=== PATIENT | male | born 1945 | race Hispanic/Latino ===

== ENCOUNTER 2022-02-20 10:36 | Inpatient (IN) | payer MEDICARE ==
[~2022-02-20] VITALS: Ht 180.3 cm; Wt 95.3 kg
[2022-02-20] MEDS ORDERED: ASPIRIN 81 MG CHEW TAB PO ONE (11:30)
[2022-02-20 11:40] LABS: BASOPHILS % 0.4 % (0.0-1.0); EOSINOPHILS # (AUTO) 0.1 (0.0-0.4); EOSINOPHILS % 0.7 % (0.0-6.0); HEMATOCRIT 39.9 % (38.2-49.6); HEMOGLOBIN 12.9 g/dL (14.0-18.0); LYMPHOCYTES # (AUTO) 1.5 (1.0-3.2); MEAN CORPUSCULAR HEMOGLOBIN 32.8 pg (28-32); MEAN CORPUSCULAR HGB CONC 32.3 g/dL (31-35); MEAN CORPUSCULAR VOLUME 101.5 fL (81-99); MONOCYTES # (AUTO) 0.6 (0.2-0.8); MONOCYTES % 8.2 % (4.4-11.3); NEUTROPHILS # (AUTO) 5.2 (2.1-6.9); NEUTROPHILS % 70.4 % (38.7-80.0); PLATELET COUNT 173 x10e3/uL (140-360); RED BLOOD COUNT 3.93 x10e6/uL (4.3-5.7); RED CELL DISTRIBUTION WIDTH 12.6 % (11.7-14.4)
[2022-02-20 11:42] LABS: INR 0.97; PROTHROMBIN TIME 13.8 seconds (11.9-14.5)
[2022-02-20 11:43] LABS: PARTIAL THROMBOPLASTIN TIME 33.4 seconds (23.8-35.5)
[2022-02-20 11:49] LABS: ALBUMIN 4.1 g/dL (3.5-5.0); ALBUMIN/GLOBULIN RATIO 1.3 (0.8-2.0); CALCIUM 9.4 mg/dL (8.4-10.2); CREATININE, SERUM 0.73 mg/dL (0.72-1.25)
[2022-02-20 11:56] LABS: CREATINE KINASE MB 1.3 ng/mL (0-5.0)
[2022-02-20] MEDS ORDERED: IOPAMIDOL 370 MG/ML 100 ML INFUS..BTL INJ ONE (13:03)
[2022-02-20] MEDS ORDERED: ONDANSETRON HCL INJ 2MG/ML 2ML 2 MG/ML VIAL IV PRN (16:30)
[2022-02-20] MEDS ORDERED: SODIUM CHLORIDE 0.9% 1000ML 1,000 ML IV ONE (16:30)
[2022-02-20] MEDS ORDERED: DEXTROSE 50% SYRINGE 50 ML IV PRN (16:45)
[2022-02-20 20:00] VITALS: BP 143/65
[2022-02-20] MEDS: INSULIN LISPRO 100 UNIT/1 ML 3ML VIAL SQ SCH (20:38)
[2022-02-20 21:26] VITALS: BP 143/65
[2022-02-21] VITALS (8 sets, daily range): BP systolic 131–143; BP diastolic 60–76
[2022-02-21 00:48] LABS: CHOL/HDL RATIO 3.3 (3.9-4.7)
[2022-02-21 06:31] LABS: BASOPHILS % 0.6 % (0.0-1.0); EOSINOPHILS # (AUTO) 0.1 (0.0-0.4); EOSINOPHILS % 1.7 % (0.0-6.0); HEMATOCRIT 36.1 % (38.2-49.6); HEMOGLOBIN 11.6 g/dL (14.0-18.0); LYMPHOCYTES # (AUTO) 1.7 (1.0-3.2); LYMPHOCYTES % 22.8 % (18.0-39.1); MEAN CORPUSCULAR HEMOGLOBIN 32.6 pg (28-32); MEAN CORPUSCULAR HGB CONC 32.1 g/dL (31-35); MEAN CORPUSCULAR VOLUME 101.4 fL (81-99); MONOCYTES # (AUTO) 0.7 (0.2-0.8); MONOCYTES % 9.5 % (4.4-11.3); NEUTROPHILS # (AUTO) 4.8 (2.1-6.9); NEUTROPHILS % 65.3 % (38.7-80.0); PLATELET COUNT 156 x10e3/uL (140-360); RED BLOOD COUNT 3.56 x10e6/uL (4.3-5.7); RED CELL DISTRIBUTION WIDTH 12.4 % (11.7-14.4)
[2022-02-21 07:02] LABS: ALBUMIN 3.6 g/dL (3.5-5.0); ALBUMIN/GLOBULIN RATIO 1.3 (0.8-2.0); ANION GAP 12.1 mmol/L (8-16); CALCIUM 9.1 mg/dL (8.4-10.2); CREATININE, SERUM 0.68 mg/dL (0.72-1.25); POTASSIUM 4.1 mmol/L (3.5-5.1)
[2022-02-21] MEDS: INSULIN LISPRO 100 UNIT/1 ML 3ML VIAL SQ SCH ×4 (08:15→21:59)
[2022-02-21] MEDS: ASPIRIN 325 MG TAB EC PO SCH (08:34)
[2022-02-21] MEDS ORDERED: FEROSUL325 MG PO (20:03)
[2022-02-21] MEDS ORDERED: METFORMIN HCL500 MG PO (20:03)
[2022-02-21] MEDS ORDERED: ASPIRIN (20:03)
[2022-02-21] MEDS ORDERED: METOPROLOL TART50 MG PO (20:03)
[2022-02-21] MEDS ORDERED: SIMVASTATIN40 MG PO (20:03)
[2022-02-21] MEDS ORDERED: OSTEO BI-FLEX1 EAC3 (20:03)
[2022-02-21] MEDS ORDERED: AMLODIPINE BESYL5 MG PO (20:03)
[2022-02-21] MEDS ORDERED: MELOXICAM7.5 MG PO (20:03)
[2022-02-21] MEDS ORDERED: LOSARTAN POTASS25 MG PO (20:03)
[2022-02-22] VITALS: BP 133/59
[2022-02-22 04:00] VITALS: BP 126/67
[2022-02-22] MEDS: INSULIN LISPRO 100 UNIT/1 ML 3ML VIAL SQ SCH ×3 (07:30→16:30)
[2022-02-22 08:01] VITALS: BP 138/53
[2022-02-22 08:30] VITALS: BP 138/53
[2022-02-22] MEDS ORDERED: AMLODIPINE BESYLATE 5 MG TAB PO SCH (09:00)
[2022-02-22] MEDS ORDERED: LOSARTAN POTASSIUM 25 MG TAB PO SCH (09:00)
[2022-02-22] MEDS: ASPIRIN 325 MG TAB EC PO SCH (09:49)
[2022-02-22 11:49] VITALS: BP 139/60
[2022-02-22 15:59] VITALS: BP 142/62
[2022-02-22] MEDS ORDERED: PLAVIX75 MG PO (19:37)
[2022-02-22] MEDS ORDERED: METOPROLOL TART25 MG PO (19:41)
[2022-02-22] MEDS ORDERED: SIMVASTATIN 40 MG TAB PO SCH (21:00)
== END 2022-02-22 20:26 | disposition home or self-care (01) | DRG 65 ==
LOC: ER 11:18 → ERHOLD 16:34 → MED/SURG3 19:07
PROVIDERS: ADMIT Internal Medicine; ATTEND Internal Medicine
DX: I63.9 Cerebral infarction, unspecified (principal); G81.91 Hemiplegia, unspecified affecting right dominant side; E11.69 Type 2 diabetes mellitus with other specified complication; E78.5 Hyperlipidemia, unspecified; I25.10 Atherosclerotic heart disease of native coronary artery without angina pectoris; Z95.1 Presence of aortocoronary bypass graft; I10 Essential (primary) hypertension; Z20.822 Contact with and (suspected) exposure to COVID-19
CPT/HCPCS: 0223U; 36415; 70496; 70498; 70551; 80053; 80061; 82550; 82553; 82948; 83036; 83735; 84484; 85025; 85610; 85730; 93005; 96372; 99284; J7030; Q9967